=== PATIENT | male | born 1995 | race Caucasian/White ===

== ENCOUNTER 2019-11-09 21:55 | Emergency (ER) | payer OTHER ==
[~2019-11-09] VITALS: Ht 188 cm; Wt 63.6 kg
[2019-11-09 21:58] VITALS: TEMP 97.7
[2019-11-09] MEDS ORDERED: MELATIN 3 MG-11 TAB PO (22:22)
[2019-11-09] MEDS ORDERED: VITAMIN D31000 IU PO (22:22)
[2019-11-09 23:59] VITALS: BP 141/81; PULSE 85
== END 2019-11-10 | disposition home or self-care (01) ==
LOC: COL.ER 21:55
DX: S52.502A Unspecified fracture of the lower end of left radius, initial encounter for closed fracture (principal); S52.602A Unspecified fracture of lower end of left ulna, initial encounter for closed fracture; S62.002A Unspecified fracture of navicular [scaphoid] bone of left wrist, initial encounter for closed fracture; S50.312A Abrasion of left elbow, initial encounter; S50.311A Abrasion of right elbow, initial encounter; S50.812A Abrasion of left forearm, initial encounter; S50.811A Abrasion of right forearm, initial encounter; V00.181A Fall from other rolling-type pedestrian conveyance, initial encounter
CPT/HCPCS: J1885; Q4021